=== PATIENT | female | born 1950 | race Caucasian/White ===

== ENCOUNTER → 2019-08-04 | Outpatient (CLI) | payer OTHER ==
[~2019-08-04] VITALS: Ht 157.5 cm; Wt 109.1 kg
[~2019-08-04] MED LIST: BENADRYL25 MG PO; COZAAR100 MG PO; DIPYRIDAMOLE 7575 M1 PO; ELIQUIS2.5 MG PO; ESTRIOL100 GM MISCELL; NYAMYC15 GM TOP; PREDNISONE 1 MG1 M1 PO; PREVACID30 MG PO; VENLAFAXIN37.5 MG/1 PO; ZETIA10 MG PO; ZYRTEC10 M2 PO
[2019-08-04 10:08] VITALS: BP 124/49
[2019-08-04 10:22] LABS: CALCIUM 8.7 mg/dL (8.5-10.1); CREATININE 1.1 mg/dL (0.6-1.3); POTASSIUM 3.9 mmol/L (3.5-5.1)
--- NOTE | 2019-08-04 16:29 | NUR ---
patient did not have CTA coronary due to heart rate would not go below 75 after taking the patient to CT scan. Initially, patient received metoprolol and heart rate was 61. After going to CT and patient laying down, her heart rate stayed at [address] Garcia gave prescription and said to reschedule.
== END | disposition home or self-care (01) ==
LOC: M.CT 07-30 08:30
PROVIDERS: Radiology Diagnostic Radiology
DX: R07.9 Chest pain, unspecified (principal); Z53.8 Procedure and treatment not carried out for other reasons; I10 Essential (primary) hypertension; J45.909 Unspecified asthma, uncomplicated; M19.90 Unspecified osteoarthritis, unspecified site; M06.9 Rheumatoid arthritis, unspecified; Z98.890 Other specified postprocedural states; Z79.899 Other long term (current) drug therapy; Z90.49 Acquired absence of other specified parts of digestive tract